=== PATIENT | male | born 1970 | race Two or more races ===

== ENCOUNTER 2016-11-18 21:25 | Inpatient (IN) | payer OTHER ==
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
[2016-11-18] MEDS ORDERED: MAGNESIUM CITRATE 300 ML BOTTLE PO PRN (22:06)
[2016-11-18] MEDS ORDERED: METHADONE HCL 10 MG TABLET (FOR DETOX USE ONLY) PO ONE ×2 (22:06→23:00)
[2016-11-18] MEDS ORDERED: MENTHOL/PHENOL 1 EACH UD MM PRN (22:06)
[2016-11-18] MEDS ORDERED: MAG HYDROX/AL HYDROX/SIMETH 30 ML UNIT-DOSE CUP PO PRN (22:06)
[2016-11-18] MEDS ORDERED: hydrOXYzine PAMOATE 50 MG CAPSULE (FP) PO PRN (22:06)
[2016-11-18] MEDS ORDERED: MAGNESIUM HYDROX 2400MG/30ML ORAL SUSPENSION 30 ML CUP PO PRN (22:06)
[2016-11-18] MEDS ORDERED: P-EPHED 60MG/TRIPROLIDI 2.5MG TABLET PO PRN (22:06)
[2016-11-18] MEDS ORDERED: chlordiazePOXIDE HCL 25 MG CAPSULE PO ONE (22:06)
[2016-11-18] MEDS ORDERED: ACETAMINOPHEN 325 MG TABLET (FP) PO PRN (22:06)
[2016-11-18] MEDS ORDERED: IBUPROFEN 400 MG TABLET (FP) PO PRN (22:06)
[2016-11-18] MEDS ORDERED: LOPERAMIDE HCL 2 MG CAPSULE PO PRN (22:06)
[2016-11-18] MEDS ORDERED: diphenhydrAMINE HCL 50 MG CAPSULE PO PRN (22:06)
[2016-11-18] MEDS ORDERED: chlordiazePOXIDE HCL 25 MG CAPSULE PO PRN (22:06)
[2016-11-18] MEDS ORDERED: NICOTINE POLACRILEX 2 MG GUM BC PRN (22:06)
[2016-11-18] MEDS ORDERED: guaiFENesin/D-METHORPHAN HB 10 ML UNIT-DOSE CUPS PO PRN (22:06)
[2016-11-18 22:25] VITALS: BP 130/75; PULSE 98; TEMP 96.7; BMI 29.1
[2016-11-18] MEDS: chlordiazePOXIDE HCL 25 MG CAPSULE PO SCH (23:08)
[2016-11-19] MEDS: chlordiazePOXIDE HCL 25 MG CAPSULE PO SCH (05:19)
--- NOTE | 2016-11-19 08:24 | PN ---
[facility] CIWA - CIWA Score Nausea/Vomitin Muscle Tremors: 3 Anxiety: 3 Agitation: 3 Paroxysmal Sweats: 1-Minimal Palms Moist Orientation: 0-Oriented Tacttile Disturbances: 1-Very Mild Itch/Numbness Auditory Disturbances: 1-Very Mild Visual Disturbances: 1-Very Mild Sensitivity Headache: 2-Mild CIWA-Ar Total Score: 18 BHS COWS - Scale Resting Pulse: 1= [place] 81-100 Sweatin= Chills/Flushing Restless Observation: 3= Extraneous Movement Pupil Size: 1= Pupils >than Normal Bone or Joint Aches: 2= Severe Diffuse Aches Runny Nose/ Eye Tearin= Runny Nose/Eyes GI Upset > 30mins: 3= Vomiting/Diarrhea Tremor Observation of Outstretched Hands: 2= Slight Tremor Visible Yawning Observation: 1= 1-2x During Session Anxiety or Irritability: 2=Irritable/Anxious Goose Flesh Skin: 0=Smooth Skin COWS Score: 18 [facility] Progress Note (SOAP) Subjective: alert,irritable,anxious,interrupted sleep,pain in the body and back,tremor Objective: 11/19/16 08:23 Vital Signs Temperature 96.7 F L 11/18/16 22:33 Pulse Rate 98 H 11/18/16 22:33 Respiratory Rate 18 11/19/16 03:30 Blood Pressure 130/75 11/18/16 22:33 O2 Sat by Pulse Oximetry (%) ekg nsr,normal ecg labs pending Assessment: 11/19/16 08:24 withdrawal symptom Plan: continue detox
--- NOTE | 2016-11-19 08:26 | PN ---
[facility] Progress Note Note: patient did not want to complete treatment,seen by counselor,signed release amanil,
--- NOTE | 2016-11-19 08:29 | DS ---
[facility] Detox Discharge Summary Admission Date: 11/18/16 Discharge Date: 11/19/16 - History Present History: Alcohol Dependence, Opioid Dependence Additional Comments: patient did not want to complete treatment,seen by counselor,signed release ama Pertinent Past History: nicotine dependence hepatitis c history of syphilis - Physical Exam Results Vital Signs: Vital Signs Temperature 96.7 F L 11/18/16 22:33 Pulse Rate 98 H 11/18/16 22:33 Respiratory Rate 18 11/19/16 03:30 Blood Pressure 130/75 11/18/16 22:33 O2 Sat by Pulse Oximetry (%) Pertinent Admission Physical Exam Findings: withdrawal symptom - Medication Discharge Medications: Ambulatory Orders Divalproex *ER* [Depakote *ER* -] 500 mg PO BID 11/18/16 Quetiapine Fumarate [Seroquel -] 200 mg PO HS 11/18/16 - AMA Did Patient Leave Against Medical Advice: Yes
[2016-11-19 09:51] LABS: MCH 27.8 pg (25.7-33.7); MCHC 32.2 g/dl (32.0-35.9); MEAN CELL VOLUME 86.4 fl (80-96); MEAN PLT VOLUME 9.5 fl (7.5-11.1); PLATELET COUNT 55 K/MM3 (134-434); RDW 18.9 % (11.9-15.9)
[2016-11-19] MEDS ORDERED: PRENATAL VITAMINS W/ FOLIC ACID TABLET (FP) PO SCH (10:00)
[2016-11-19] MEDS ORDERED: METHADONE HCL 10 MG TABLET (FOR DETOX USE ONLY) PO SCH (10:00)
[2016-11-19] MEDS ORDERED: NICOTINE 14 MG/24 HOURS TOPICAL PATCH TD SCH (10:00)
[2016-11-19 10:21] LABS: ALBUMIN 2.9 g/dl (3.4-5.0); ALK PHOS 168 U/L (45-117); ANION GAP 9 (8-16); BILIRUBIN,TOTAL 1.4 mg/dL (0.2-1.0); CALCIUM 8.2 mg/dL (8.5-10.1); CO2 29 mmol/L (21-32); COCKROFT - GAULT 170.88; CREATININE 0.6 mg/dL (0.7-1.3); GLUCOSE,RANDOM 101 mg/dL (74-106); SGOT/AST 159 U/L (15-37); SGPT/ALT 79 U/L (12-78); TOT PROT 6.5 g/dl (6.4-8.2)
[2016-11-19] MEDS ORDERED: THIAMINE HCL 100 MG TABLET (FP) PO SCH (22:00)
[2016-11-19] MEDS ORDERED: chlordiazePOXIDE HCL 25 MG CAPSULE PO SCH (23:00)
[2016-11-20] MEDS ORDERED: METHADONE HCL 5 MG TABLET (FOR DETOX USE ONLY) PO SCH (10:00)
--- NOTE | 2016-11-20 13:03 | EKG ---
Test Reason : Blood Pressure : / mmHG Vent. Rate : 077 BPM Atrial Rate : 077 BPM P-R Int : 132 ms QRS Dur : 082 ms QT Int : 358 ms P-R-T Axes : 062 005 058 degrees QTc Int : 405 ms NORMAL SINUS RHYTHM NORMAL ECG NO PREVIOUS ECGS AVAILABLE Confirmed by GÓMEZ DIAZ MD ([id number]) on 11/20/2016 1:03:23 PM Referred By: Confirmed By:GÓMEZ DIAZ MD
[2016-11-20] MEDS ORDERED: chlordiazePOXIDE 5 MG CAPSULE PO SCH (23:00)
[2016-11-21] MEDS ORDERED: chlordiazePOXIDE HCL 10 MG CAPSULE PO SCH (23:00)
[2016-11-22] MEDS ORDERED: METHADONE HCL 10 MG TABLET (FOR DETOX USE ONLY) PO SCH (10:00)
[2016-11-23] MEDS ORDERED: METHADONE HCL 5 MG TABLET (FOR DETOX USE ONLY) PO SCH (06:00)
== END 2016-11-19 08:33 | disposition left against medical advice (07) | DRG 770 ==
LOC: YASAS 21:25 → Y6N 21:55
PROVIDERS: ADMIT Internal Medicine Addiction Medicine; ATTEND Internal Medicine Addiction Medicine
PROC: HZ2ZZZZ Detoxification Services for Substance Abuse Treatment (ICD-10-PCS; principal; 2016-11-19)
DX: F11.23 Opioid dependence with withdrawal (principal); F10.230 Alcohol dependence with withdrawal, uncomplicated; F17.213 Nicotine dependence, cigarettes, with withdrawal; F32.9 Major depressive disorder, single episode, unspecified; F20.0 Paranoid schizophrenia; G40.909 Epilepsy, unspecified, not intractable, without status epilepticus; J45.20 Mild intermittent asthma, uncomplicated; Z87.438 Personal history of other diseases of male genital organs
CPT/HCPCS: 36415; 80053; 85027; 86593; 93005; 93010

== ENCOUNTER 2020-11-15 16:59 | Inpatient (IN) | payer OTHER ==
[2020-11-15] MEDS ORDERED: ONDANSETRON *ODT* 4 MG TABLET SL PRN (20:30)
[2020-11-15] MEDS ORDERED: MENTHOL/PHENOL 1 EACH UD MM PRN (20:30)
[2020-11-15] MEDS ORDERED: METHOCARBAMOL 500 MG TABLET PO PRN (20:30)
[2020-11-15] MEDS ORDERED: ACETAMINOPHEN 325 MG TABLET (FP) PO PRN ×2 (20:30)
[2020-11-15] MEDS ORDERED: hydrOXYzine PAMOATE 25 MG CAPSULE (FP) PO PRN (20:30)
[2020-11-15] MEDS ORDERED: MAGNESIUM CITRATE 300 ML BOTTLE PO PRN (20:30)
[2020-11-15] MEDS ORDERED: IBUPROFEN 400 MG TABLET (FP) PO PRN (20:30)
[2020-11-15] MEDS ORDERED: chlordiazePOXIDE HCL 25 MG CAPSULE PO PRN (20:30)
[2020-11-15] MEDS ORDERED: BISMUTH SUBSALICYLATE 524 MG/30 ML UD PO PRN (20:30)
[2020-11-15] MEDS ORDERED: MAGNESIUM HYDROX 2400MG/30ML ORAL SUSPENSION 30 ML CUP PO PRN (20:30)
[2020-11-15] MEDS ORDERED: MAG HYDROX/AL HYDROX/SIMETH 30 ML UNIT-DOSE CUP PO PRN (20:30)
[2020-11-15 20:55] VITALS: BMI 33.1
[2020-11-15] MEDS: THIAMINE HCL 100 MG TABLET (FP) PO SCH (22:39)
[2020-11-15] MEDS: MELATONIN 5 MG TABLETS PO SCH (22:39)
[2020-11-15] MEDS: chlordiazePOXIDE HCL 25 MG CAPSULE PO SCH (22:39)
[2020-11-16] MEDS: chlordiazePOXIDE HCL 25 MG CAPSULE PO SCH ×4 (05:15→22:13)
[2020-11-16] MEDS: PRENATAL VITAMINS W/ FOLIC ACID TABLET (FP) PO SCH (10:30)
[2020-11-16] MEDS: METHADONE HCL 40 MG DISPERSABLE TABLET PO SCH (12:35)
[2020-11-16] MEDS: OXcarbazepine 300 MG TABLET (UD) PO SCH ×2 (12:35→22:12)
[2020-11-16] MEDS: QUEtiapine FUMARATE 200 MG TABLET PO SCH (22:12)
[2020-11-16] MEDS: MELATONIN 5 MG TABLETS PO SCH (22:12)
[2020-11-16] MEDS: THIAMINE HCL 100 MG TABLET (FP) PO SCH (22:13)
[2020-11-17] MEDS: METHADONE HCL 40 MG DISPERSABLE TABLET PO SCH (05:54)
[2020-11-17] MEDS: chlordiazePOXIDE HCL 25 MG CAPSULE PO SCH ×4 (05:56→22:17)
[2020-11-17 09:59] LABS: ALBUMIN 2.8 g/dl (3.4-5.0); BLOOD UREA NITROGEN 5.7 mg/dL (7-18); CALCIUM 8.3 mg/dL (8.5-10.1)
[2020-11-17 10:02] LABS: CREATININE 0.6 mg/dL (0.55-1.3)
[2020-11-17 10:04] LABS: BILIRUBIN,TOTAL 2.6 mg/dL (0.2-1); HEMATOCRIT 35.9 % (35.4-49); HEMOGLOBIN 12.1 GM/dL (11.7-16.9); MCH 30.5 pg (25.7-33.7); MCHC 33.5 g/dl (32.0-35.9); MEAN CELL VOLUME 90.9 fl (80-96); MEAN PLT VOLUME 9.7 fl (7.5-11.1); PLATELET COUNT 45 K/MM3 (134-434); RBC 3.96 M/mm3 (4.00-5.60); RDW 19.8 % (11.9-15.9); TOT PROT 7.1 g/dl (6.4-8.2); WHITE BLOOD COUNT 2.4 K/mm3 (4.0-10.0)
[2020-11-17] MEDS: PRENATAL VITAMINS W/ FOLIC ACID TABLET (FP) PO SCH (10:18)
[2020-11-17] MEDS: OXcarbazepine 300 MG TABLET (UD) PO SCH ×2 (10:18→22:17)
[2020-11-17] MEDS: MELATONIN 5 MG TABLETS PO SCH (22:18)
[2020-11-17] MEDS: THIAMINE HCL 100 MG TABLET (FP) PO SCH (22:18)
[2020-11-17] MEDS: QUEtiapine FUMARATE 200 MG TABLET PO SCH (22:18)
[2020-11-18] MEDS ORDERED: chlordiazePOXIDE HCL 10 MG CAPSULE PO PRN
[2020-11-18] MEDS: chlordiazePOXIDE HCL 10 MG CAPSULE PO SCH ×4 (05:23→23:34)
[2020-11-18] MEDS: METHADONE HCL 40 MG DISPERSABLE TABLET PO SCH (05:24)
[2020-11-18 06:07] LABS: SARS-CoV-2 NAA Not Detected (Not Detected)
[2020-11-18] MEDS: OXcarbazepine 300 MG TABLET (UD) PO SCH ×2 (10:16→23:34)
[2020-11-18] MEDS: PRENATAL VITAMINS W/ FOLIC ACID TABLET (FP) PO SCH (10:17)
[2020-11-18 10:35] LABS: HEMATOCRIT 37.2 % (35.4-49); HEMOGLOBIN 12.5 GM/dL (11.7-16.9); MCH 30.5 pg (25.7-33.7); MCHC 33.6 g/dl (32.0-35.9); MEAN CELL VOLUME 90.8 fl (80-96); MEAN PLT VOLUME 9.4 fl (7.5-11.1); PLATELET COUNT 52 K/MM3 (134-434); RBC 4.09 M/mm3 (4.00-5.60); RDW 20.1 % (11.9-15.9); WHITE BLOOD COUNT 2.6 K/mm3 (4.0-10.0)
[2020-11-18 10:41] LABS: ALBUMIN 2.8 g/dl (3.4-5.0); BLOOD UREA NITROGEN 10.2 mg/dL (7-18); CALCIUM 8.4 mg/dL (8.5-10.1)
[2020-11-18 10:42] LABS: INR 1.38 (0.83-1.09); PROTHROMBIN TIME (PATIENT) 16.6 SEC (9.7-13.0)
[2020-11-18 10:44] LABS: CREATININE 0.6 mg/dL (0.55-1.3)
[2020-11-18 10:46] LABS: BILIRUBIN,TOTAL 2.1 mg/dL (0.2-1); TOT PROT 6.9 g/dl (6.4-8.2)
[2020-11-18] MEDS: QUEtiapine FUMARATE 200 MG TABLET PO SCH (23:34)
[2020-11-18] MEDS: MELATONIN 5 MG TABLETS PO SCH (23:34)
[2020-11-18] MEDS: THIAMINE HCL 100 MG TABLET (FP) PO SCH (23:35)
[2020-11-19] MEDS ORDERED: chlordiazePOXIDE HCL 10 MG CAPSULE PO SCH (05:00)
[2020-11-19] MEDS: METHADONE HCL 40 MG DISPERSABLE TABLET PO SCH (06:28)
[2020-11-19 09:24] VITALS: BP 106/61; PULSE 83; TEMP 97.3
[2020-11-19] MEDS: PRENATAL VITAMINS W/ FOLIC ACID TABLET (FP) PO SCH (10:41)
[2020-11-19] MEDS: OXcarbazepine 300 MG TABLET (UD) PO SCH (10:41)
[2020-11-20] MEDS ORDERED: chlordiazePOXIDE HCL 10 MG CAPSULE PO ONE (05:00)
== END 2020-11-19 11:54 | disposition home or self-care (01) | DRG 773 ==
LOC: YASAS 16:59 → Y3N 21:32
PROVIDERS: ADMIT Allergy & Immunology; ATTEND Allergy & Immunology
PROC: HZ2ZZZZ Detoxification Services for Substance Abuse Treatment (ICD-10-PCS; principal; 2020-11-15)
DX: F10.230 Alcohol dependence with withdrawal, uncomplicated (principal); F11.23 Opioid dependence with withdrawal; F17.210 Nicotine dependence, cigarettes, uncomplicated; F31.9 Bipolar disorder, unspecified; F25.9 Schizoaffective disorder, unspecified; D69.6 Thrombocytopenia, unspecified; R56.1 Post traumatic seizures; D72.819 Decreased white blood cell count, unspecified; B18.2 Chronic viral hepatitis C; Z86.19 Personal history of other infectious and parasitic diseases; Z88.8 Allergy status to other drugs, medicaments and biological substances; Z91.013 Allergy to seafood; Z56.0 Unemployment, unspecified; Z59.0 Homelessness; W06.XXXA Fall from bed, initial encounter; Y93.89 Activity, other specified; Y92.230 Patient room in hospital as the place of occurrence of the external cause
CPT/HCPCS: 36415; 80053; 85027; 85610; 86593; 86780; 93005; 93010; C9803; U0003; U0005

== ENCOUNTER 2021-06-27 10:36 | Inpatient (IN) | payer OTHER ==
[2021-06-27] MEDS ORDERED: IBUPROFEN 400 MG TABLET (FP) PO PRN (11:33)
[2021-06-27] MEDS ORDERED: ONDANSETRON *ODT* 4 MG TABLET SL PRN (11:33)
[2021-06-27] MEDS ORDERED: MAG HYDROX/AL HYDROX/SIMETH 30 ML UNIT-DOSE CUP PO PRN (11:33)
[2021-06-27] MEDS ORDERED: MAGNESIUM HYDROX 2400MG/30ML ORAL SUSPENSION 30 ML CUP PO PRN (11:33)
[2021-06-27] MEDS ORDERED: NICOTINE 10 MG CARTRIDGE (INHALER) IH PRN (11:33)
[2021-06-27] MEDS ORDERED: MAGNESIUM CITRATE 300 ML BOTTLE PO PRN (11:33)
[2021-06-27] MEDS ORDERED: BISMUTH SUBSALICYLATE 262 MG/15 ML BTL PO PRN (11:33)
[2021-06-27] MEDS ORDERED: ACETAMINOPHEN 325 MG TABLET (FP) PO PRN ×2 (11:33)
[2021-06-27] MEDS ORDERED: MENTHOL/PHENOL 1 EACH UD MM PRN (11:33)
[2021-06-27] MEDS ORDERED: METHOCARBAMOL 500 MG TABLET PO PRN (11:33)
[2021-06-27 11:39] VITALS: BMI 31.9
[2021-06-27 13:33] LABS: HEMATOCRIT 35.2 % (35.4-49); HEMOGLOBIN 11.8 GM/dL (11.7-16.9); MCH 30.7 pg (25.7-33.7); MCHC 33.4 g/dl (32.0-35.9); MEAN CELL VOLUME 91.9 fl (80-96); PLATELET COUNT 81 10^3/uL (134-434); RBC 3.83 M/mm3 (4.00-5.60); RDW 16.3 % (11.9-15.9); WHITE BLOOD COUNT 4.7 K/mm3 (4.0-10.0)
[2021-06-27 13:38] LABS: CALCIUM 8.7 mg/dL (8.5-10.1)
[2021-06-27 13:40] LABS: ALBUMIN 2.7 g/dl (3.4-5.0)
[2021-06-27 13:43] LABS: CREATININE 0.9 mg/dL (0.55-1.3)
[2021-06-27 13:44] LABS: BILIRUBIN,TOTAL 1.2 mg/dL (0.2-1); TOT PROT 7.5 g/dl (6.4-8.2)
[2021-06-27] MEDS: hydrOXYzine PAMOATE 25 MG CAPSULE (FP) PO SCH ×3 (15:18→22:29)
[2021-06-27] MEDS: PRENATAL VITAMINS W/ FOLIC ACID TABLET (FP) PO SCH (15:19)
[2021-06-27] MEDS: NICOTINE 7 MG/24 HOURS TOPICAL PATCH TD SCH (15:19)
[2021-06-27 16:12] LABS: HIV INTERPRETATION NEGATIVE (NEGATIVE)
[2021-06-27] MEDS ORDERED: DIVALPROEX NA *ER* EXTEND REL 500 MG TABLET.SA (FP) PO SCH (22:00)
[2021-06-27] MEDS ORDERED: QUEtiapine FUMARATE 100 MG TABLET (FP) PO SCH (22:00)
[2021-06-27] MEDS: QUEtiapine FUMARATE 200 MG TABLET PO SCH (22:29)
[2021-06-27] MEDS: THIAMINE HCL 100 MG TABLET (FP) PO SCH (22:29)
[2021-06-27] MEDS: OXcarbazepine 300 MG TABLET (UD) PO SCH (22:29)
[2021-06-27] MEDS: MELATONIN 5 MG TABLETS PO SCH (22:54)
[2021-06-28] MEDS: hydrOXYzine PAMOATE 25 MG CAPSULE (FP) PO SCH ×5 (05:52→22:10)
[2021-06-28] MEDS ORDERED: LORazepam 1 MG TABLET PO PRN (09:40)
[2021-06-28] MEDS ORDERED: methaDONE HCL 10 MG TABLET PO SCH (09:45)
[2021-06-28] MEDS: PRENATAL VITAMINS W/ FOLIC ACID TABLET (FP) PO SCH (10:39)
[2021-06-28] MEDS: NICOTINE 7 MG/24 HOURS TOPICAL PATCH TD SCH (10:39)
[2021-06-28] MEDS ORDERED: methaDONE HCL 10 MG TABLET ONE (10:40)
[2021-06-28] MEDS ORDERED: methaDONE HCL 40 MG DISPERSABLE TABLET ONE (10:41)
[2021-06-28] MEDS: OXcarbazepine 300 MG TABLET (UD) PO SCH ×2 (10:46→22:09)
[2021-06-28] MEDS: LORazepam 2 MG TABLET PO SCH ×3 (10:46→22:09)
[2021-06-28] MEDS: THIAMINE HCL 100 MG TABLET (FP) PO SCH (22:10)
[2021-06-28] MEDS: QUEtiapine FUMARATE 200 MG TABLET PO SCH (22:10)
[2021-06-28] MEDS: MELATONIN 5 MG TABLETS PO SCH (22:10)
[2021-06-29] MEDS ORDERED: methaDONE HCL 10 MG TABLET ONE (04:14)
[2021-06-29] MEDS ORDERED: methaDONE HCL 40 MG DISPERSABLE TABLET ONE (04:15)
[2021-06-29] MEDS: LORazepam 2 MG TABLET PO SCH ×4 (06:01→22:19)
[2021-06-29] MEDS: hydrOXYzine PAMOATE 25 MG CAPSULE (FP) PO SCH ×5 (06:21→22:23)
[2021-06-29] MEDS: NICOTINE 7 MG/24 HOURS TOPICAL PATCH TD SCH (10:05)
[2021-06-29] MEDS: PRENATAL VITAMINS W/ FOLIC ACID TABLET (FP) PO SCH (10:05)
[2021-06-29] MEDS: OXcarbazepine 300 MG TABLET (UD) PO SCH ×2 (10:06→22:20)
[2021-06-29] MEDS: MELATONIN 5 MG TABLETS PO SCH (22:20)
[2021-06-29] MEDS: THIAMINE HCL 100 MG TABLET (FP) PO SCH (22:20)
[2021-06-30] MEDS ORDERED: methaDONE HCL 10 MG TABLET ONE (04:17)
[2021-06-30] MEDS ORDERED: methaDONE HCL 40 MG DISPERSABLE TABLET ONE (04:17)
[2021-06-30] MEDS: LORazepam 1 MG TABLET PO SCH ×4 (07:19→22:06)
[2021-06-30] MEDS: hydrOXYzine PAMOATE 25 MG CAPSULE (FP) PO SCH ×5 (07:19→22:02)
[2021-06-30] MEDS: OXcarbazepine 300 MG TABLET (UD) PO SCH ×2 (10:08→22:01)
[2021-06-30] MEDS: NICOTINE 7 MG/24 HOURS TOPICAL PATCH TD SCH (10:09)
[2021-06-30] MEDS: PRENATAL VITAMINS W/ FOLIC ACID TABLET (FP) PO SCH (10:09)
[2021-06-30] MEDS ORDERED: LACTULOSE 20 GM/30 ML UDC (FOR ORAL USE ONLY) PO ONE (10:33)
[2021-06-30] MEDS: LACTULOSE 20 GM/30 ML UDC (FOR ORAL USE ONLY) PO SCH ×3 (13:09→22:01)
[2021-06-30] MEDS: THIAMINE HCL 100 MG TABLET (FP) PO SCH (22:01)
[2021-06-30] MEDS: MELATONIN 5 MG TABLETS PO SCH (22:01)
[2021-07-01] MEDS ORDERED: LORazepam 0.5 MG TABLET PO PRN
[2021-07-01] MEDS ORDERED: methaDONE HCL 40 MG DISPERSABLE TABLET ONE (04:09)
[2021-07-01] MEDS ORDERED: methaDONE HCL 10 MG TABLET ONE (04:09)
[2021-07-01] MEDS: LORazepam 0.5 MG TABLET PO SCH ×4 (05:40→22:12)
[2021-07-01] MEDS: hydrOXYzine PAMOATE 25 MG CAPSULE (FP) PO SCH ×5 (05:42→22:54)
[2021-07-01] MEDS: OXcarbazepine 300 MG TABLET (UD) PO SCH ×2 (10:02→22:12)
[2021-07-01] MEDS: LACTULOSE 20 GM/30 ML UDC (FOR ORAL USE ONLY) PO SCH ×4 (10:02→22:12)
[2021-07-01] MEDS: PRENATAL VITAMINS W/ FOLIC ACID TABLET (FP) PO SCH (10:02)
[2021-07-01] MEDS: NICOTINE 7 MG/24 HOURS TOPICAL PATCH TD SCH (10:54)
[2021-07-01 12:27] LABS: CALCIUM 8.8 mg/dL (8.5-10.1)
[2021-07-01 12:28] LABS: ALBUMIN 2.9 g/dl (3.4-5.0); BLOOD UREA NITROGEN 11.3 mg/dL (7-18)
[2021-07-01 12:31] LABS: CREATININE 0.7 mg/dL (0.55-1.3)
[2021-07-01 12:33] LABS: BILIRUBIN,TOTAL 1.2 mg/dL (0.2-1); INR 1.44 (0.83-1.09); PROTHROMBIN TIME (PATIENT) 16.9 SEC (9.7-13.0); TOT PROT 7.6 g/dl (6.4-8.2)
[2021-07-01] MEDS: MELATONIN 5 MG TABLETS PO SCH (22:12)
[2021-07-01] MEDS: THIAMINE HCL 100 MG TABLET (FP) PO SCH (22:12)
[2021-07-02] MEDS ORDERED: methaDONE HCL 10 MG TABLET ONE (04:19)
[2021-07-02] MEDS ORDERED: methaDONE HCL 40 MG DISPERSABLE TABLET ONE (04:19)
[2021-07-02] MEDS ORDERED: LORazepam 0.5 MG TABLET PO ONE (05:00)
[2021-07-02] MEDS: hydrOXYzine PAMOATE 25 MG CAPSULE (FP) PO SCH (05:15)
[2021-07-02 06:13] VITALS: TEMP 97.8
[2021-07-02 10:36] LABS: HEMATOCRIT 36.5 % (35.4-49); MCH 30.4 pg (25.7-33.7); MCHC 32.9 g/dl (32.0-35.9); MEAN CELL VOLUME 92.4 fl (80-96); MEAN PLT VOLUME 10.4 fl (7.5-11.1); PLATELET COUNT 95 10^3/uL (134-434); RBC 3.95 M/mm3 (4.00-5.60); RDW 16.3 % (11.9-15.9); WHITE BLOOD COUNT 5.1 K/mm3 (4.0-10.0)
[2021-07-02 11:08] VITALS: BP 135/74; PULSE 90
== END 2021-07-02 10:45 | disposition left against medical advice (07) | DRG 770 ==
LOC: YASAS 10:36 → Y3N 12:25
PROVIDERS: ADMIT Allergy & Immunology; ATTEND Allergy & Immunology
PROC: HZ2ZZZZ Detoxification Services for Substance Abuse Treatment (ICD-10-PCS; principal; 2021-06-27)
DX: F10.230 Alcohol dependence with withdrawal, uncomplicated (principal); F11.20 Opioid dependence, uncomplicated; F14.20 Cocaine dependence, uncomplicated; F17.210 Nicotine dependence, cigarettes, uncomplicated; F19.24 Other psychoactive substance dependence with psychoactive substance-induced mood disorder; F25.9 Schizoaffective disorder, unspecified; E72.20 Disorder of urea cycle metabolism, unspecified; R94.5 Abnormal results of liver function studies; G40.909 Epilepsy, unspecified, not intractable, without status epilepticus; G47.00 Insomnia, unspecified; Z88.8 Allergy status to other drugs, medicaments and biological substances; Z91.013 Allergy to seafood; Z62.810 Personal history of physical and sexual abuse in childhood; Z87.828 Personal history of other (healed) physical injury and trauma; Z87.820 Personal history of traumatic brain injury; Z86.19 Personal history of other infectious and parasitic diseases; Z91.51 Personal history of suicidal behavior; Z56.0 Unemployment, unspecified; Z59.01 Sheltered homelessness
CPT/HCPCS: 36415; 80053; 82140; 85027; 85610; 86593; 86780; 87389; C9803; U0003; U0005